=== PATIENT | female | born 1930 | race Caucasian/White ===

== ENCOUNTER → 2018-03-06 | Day surgery (SDC) | payer MEDICARE, OTHER ==
[~2018-03-06] VITALS: Ht 165.1 cm; Wt 61.0 kg
[~2018-03-06] MED LIST: AMLO10TA2 PO; ASPI81TA23 PO; BRIM0.2S4 EACH EYE; BUPIVACAINE HCL PF 0.5% 10 ML VIAL ONE; CEPH-459 PO; CHLORHEXIDINE GLUCONATE 2 % 1 PACK (2 CLOTHS) TOPICAL PRN; HYDR-3288 PO; LACTATED RINGER'S 1000 ML IV PRN; LATA0.002 EACH EYE; LIDOCAINE HCL 2% 50 ML VIAL ONE; LOSA100T PO; METO1TAB9 PO; METOPROLOL TARTRATE 25 MG TAB PO PRN; NEOMYCIN/POLYMYXIN 1 ML G.U. IRRIGANT ONE; POTA10CA PO; POVIDONE IODINE 5% (ANTISEPSIS KIT) 4 APPLICATIONS EACH NARE PRN; ROSU1TAB4 PO; SODIUM CHLORID 0.9% 500 ML IV PRN; VITA1000 PO; VITA100021 SL; ceFAZolin 1,000 MG/NS 100 ML IV SCH
[2018-03-06 11:10] VITALS: BP 169/79; PULSE 77; RESP 16; TEMP 98.2; O2SAT 98
--- NOTE | 2018-03-06 13:44 | MP ---
cc: Bravo Oconnell MD DATE OF OPERATION: 03/06/2018 DATE OF OPERATION: 03/06/2018 PREOPERATIVE DIAGNOSIS: Left carpal tunnel syndrome. PROCEDURE PERFORMED: Left open carpal tunnel release. SURGEON: Bravo Oconnell III, DESCRIPTION OF PROCEDURE: The patient was brought into the operating room and placed supine on the operating table. After the correct site and side of surgery were verified with the members of each team in the room multiple times including the patient and myself, and after adequate preoperative markings and preoperative written consent were verified by everyone and, after adequate preoperative timeout was performed to everyone's satisfaction, after adequate IV sedation was achieved, the left upper extremity was prepped and draped in traditional sterile surgical fashion. A 50:50 mixture of 2% lidocaine and 0.5% plain Marcaine was infiltrated into the skin and subcutaneous tissue at the base of the palm and into the carpal tunnel ligament. The limb was exsanguinated with an Lalo wrap and a highly placed, well-padded axillary tourniquet was inflated to 200 mmHg for a total of 9 minutes. A longitudinally oriented incision was made at the base of the palm in the skin crease and carried down through skin and subcutaneous tissue. The palmar fascia was retracted in opposite directions. The transverse carpal ligament was identified and transected in its entirety on the ulnar side of its midline from its proximal-most to its distal-most extent, completely decompressing and freeing up the carpal tunnel contents. There was a moderately hypertrophic tenosynovium. There was no other evidence of any mass effect or anatomic abnormalities. Thorough irrigation with saline was performed and the skin edges were reapproximated using running 4-0 nylon suture. The hand and arm were thoroughly cleansed and dried. Betadine and Adaptic dressings were applied on top of the wounds, followed by a bulky soft dressing. The patient was awakened from anesthesia and transported to the postanesthesia care unit awake and in stable condition at the end of the case. Sponge, needle and instrument counts were correct at the end of the case as reported by the nurse in the room. Of note, the axillary tourniquet was released after 9 minutes and the hand and all fingers became immediately soft, pink and warm and had brisk capillary refill of less than 2 seconds. Bravo MD ARTHUR Rivas/ERINN , 01:25 PM , 01:43 PM
--- NOTE | 2018-03-06 14:52 | EKG ---
Date Performed: 03/06/2018 Time Performed: 09:10:18 PTAGE: 87 years EKG: Sinus rhythm WITH FIRST DEGREE AV BLOCK BORDERLINE LEFT AXIS DEVIATION ABNORMAL ECG NO PREVIOUS TRACING DOCTOR: Naveen Veliz Interpretating Date/Time 03/06/2018 14:47:54
== END | disposition home or self-care (01) ==
LOC: PHSDC 08:12
PROVIDERS: ATTEND Orthopaedic Surgery Hand Surgery
DX: G56.02 Carpal tunnel syndrome, left upper limb (principal); I10 Essential (primary) hypertension; E78.5 Hyperlipidemia, unspecified
CPT/HCPCS: 01810; 64721; 93005; J0690; J7120

== ENCOUNTER → 2018-04-03 | Day surgery (SDC) | payer MEDICARE, OTHER ==
[~2018-04-03] VITALS: Ht 165.1 cm; Wt 61.5 kg
[~2018-04-03] MED LIST changes: +LIDOCAINE HCL 1% PF 5 ML SYRINGE OTHER ONE; +PROPOFOL 200 MG/20 ML AMP IV ONE
[2018-04-03 10:07] VITALS: TEMP 97.6
[2018-04-03 10:35] VITALS: BP 143/64; PULSE 61; RESP 16; O2SAT 100
--- NOTE | 2018-04-03 11:34 | MP ---
cc: Bravo Oconnell MD DATE OF OPERATION: 04/03/2018 DATE OF OPERATION: 04/03/2018 PREOPERATIVE DIAGNOSIS: Right carpal tunnel syndrome. POSTOPERATIVE DIAGNOSIS: Right carpal tunnel syndrome. PROCEDURE PERFORMED: Right open carpal tunnel release. SURGEON: Bravo Oconnell III, PROCEDURE: The patient was brought to the operating room and placed supine on the operating table. After the correct site and side of surgery were verified by members of each team in the room multiple times including the patient and myself and, after adequate preoperative markings and preoperative written consent was verified by everyone in the room, and after preoperative timeout, preoperative antibiotics were given and IV sedation had been achieved, the right upper extremity was prepped and then re-prepped because of the patient's acrylic nails and allowed to dry with Betadine was performed. A 50:50 mixture of 2% plain lidocaine and 0.5% plain Marcaine was infiltrated in the skin and subcutaneous tissue at the base of the palm, into the carpal tunnel. The limb was exsanguinated with an Lalo wrap and a highly placed, well padded axillary tourniquet was inflated to 200 mmHg for a total of 6 minutes. Longitudinally oriented incision within the base of the palm was made, carried down through skin and subcutaneous tissue. Blunt dissection was performed. The palmar fascia was retracted in opposite directions. The transverse carpal ligament was identified and transected in its entirety to the ulnar side of its midline from its proximal-most to its distal-most extents, completely freeing the carpal tunnel contents. The median nerve was slightly pale, but otherwise not compromised. There was some moderately hypertrophic tenosynovial layer as well. There were no other anatomic abnormalities identified. There was no mass effect. Thorough irrigation with saline was performed. The skin edges were reapproximated using running 4-0 nylon suture. Betadine and Adaptic dressings were applied, followed by a bulky soft dressing. The axillary tourniquet was released after 8 minutes and all fingers and the hand and all the fingers on the right became immediately soft, pink and warm, had brisk capillary refill of less than 2 seconds. A circumferential dressing was applied in usual fashion. The patient was awakened from anesthesia and transported to the postanesthesia care unit awake and in stable condition at the end of the case. Sponge, needle and instrument counts were correct at the end of the case as reported by the nurses in the room. MD ARTHUR Helms/ERINN , 10:55 AM , 11:33 AM
== END | disposition home or self-care (01) ==
LOC: PHSDC 07:02
PROVIDERS: ATTEND Orthopaedic Surgery Hand Surgery
DX: G56.01 Carpal tunnel syndrome, right upper limb (principal)
CPT/HCPCS: 01810; 64721; J0690; J3010; J7120